=== PATIENT | female | born 1930 | race Caucasian/White ===

== ENCOUNTER 2020-04-30 19:28 | Observation (INO) | payer MEDICARE, BC ==
[2020-04-30 20:06] LABS: #Basophils 0.1 thou/uL (0.0-0.2); #Eosinphils 0.1 thou/uL (0.0-0.7); #Lymphocytes 1.5 thou/uL (1.20-3.40); #Monocytes 0.6 thou/uL (0.11-0.59); #Neutrophils 5.7 thou/uL (1.40-6.50); %Basophils 0.9 % (0.0-1.0); %Eosinophils 1.8 % (0.0-10.0); %Lymphocytes 19.4 % (21.0-51.0); %Monocytes 6.9 % (0.0-10.0); Hemoglobin 14.8 g/dL (12.0-16.0); Mean Corpuscular HGB CONC 33.4 g/dL (32.0-36.0); Mean Corpuscular Hemoglobin 31.6 pg (27.0-31.0); Mean Corpuscular Volume 94.6 fL (78.0-98.0); Platelet Count 195 thou/uL (130-400); RBC Distribution Width 11.7 % (11.5-14.5); Red Blood Cell (RBC) Count 4.69 mill/uL (4.20-5.40)
--- NOTE | 2020-04-30 20:06 | RAD ---
Chest AP view INDICATION: Chest wall and rib pain COMPARISON: None FINDINGS: Lungs: There is a diffuse interstitial opacities suspicious for underlying fibrosis. No confluent ai rspace opacity is evident. Cardiac silhouette: There is a atrial appendage closure device seen along the left heart border. The re are vascular calcification involving the thoracic aorta. Heart size is normal. Pulmonary vasculature: Normal Pleural spaces: No pleural effusion or pneumothorax is demonstrated. Upper abdomen: No abnormality seen. Osseous structures: There is a bone infarct versus low-grade chondroid lesion involving proximal rig ht humerus. There is diffuse osteopenia. No definite acute osseous abnormality is evident. Additional findings: None. IMPRESSION: Chronic lung changes. No definite acute cardiopulmonary abnormality.
[2020-04-30] MEDS ORDERED: HYDROcodone/Acetaminophen 5/325 mg Tablet ONE (20:20)
[2020-04-30] MEDS ORDERED: Nitroglycerin 0.4 MG TAB 1 EACH ONE (20:20)
[2020-04-30] MEDS ORDERED: Aspirin 325 MG TAB ONE (20:20)
[2020-04-30 20:28] LABS: ALT (SGPT) 23 U/L (8-55); AST (SGOT) 23 U/L (5-34); Albumin 4.7 g/dL (3.4-4.8); Alkaline Phosphatase 61 U/L (40-110); Anion Gap 14 mmol/L (10-20); BUN (Urea Nitrogen) 18 mg/dL (9.8-20.1); Bilirubin, Total 1.1 mg/dL (0.2-1.2); CK (CPK) 66 U/L (29-168); Calc. Creatinine Clearance 0 mL/min (70-130); Calcium 9.3 mg/dL (7.8-10.44); Carbon Dioxide 22 mmol/L (23-31); Chloride 107 mmol/L (98-107); Estimated GFR-MDRD 64; Globulin 2.4 g/dL (2.4-3.5); Glucose 139 mg/dL (83-110); Potassium 4.1 mmol/L (3.5-5.1); Protein, Total 7.1 g/dL (6.0-8.3); Sodium 139 mmol/L (136-145)
[2020-04-30 23:25] LABS: Troponin I 0.015 ng/mL (< 0.028)
[2020-05-01 00:13] VITALS: BMI 23.7
[2020-05-01] MEDS ORDERED: Acetaminophen 650 MG Suppository PR PRN (00:43)
[2020-05-01] MEDS ORDERED: Acetaminophen 325 MG TAB PO PRN (00:43)
[2020-05-01] MEDS ORDERED: Nitroglycerin 0.4 MG TAB (25 Tab Bottle) SL PRN (00:46)
--- NOTE | 2020-05-01 01:01 | PDOC.HHP ---
Hospitalist HPI - History of Present Illness Chest pain History of Present Illness: Patient presents with complaints of chest pain that have been ongoing for the past 3 days. States its been intermittent and occurring on the right side of her lower chest and left side of her lower chest, beneath her breasts. The pain switches sides and she is unable to recall how long it lasts. She is sedentary at baseline. Mobilises with her walker but spends most of her time sitting. Denies any association between pain and activity. Has not taken anything for pain. Unable to rate it in terms of severity. She was on her way to the ED today due to the pain when she suddenly had an increase in pain at approximately 6:30pm. Unable to recall how long it lasted. States it is an aching pain. Not stabbing in nature. Pain is not reproducible to touch and she denies any falls or injuries. No shortness of breath or cough. No hemoptysis. She became diaphoretic and was nauseated. No vomiting. Denies any recent fevers or chills. Reports having regular bowel movements. No urinary symptoms. All other review of systems are negative. Of note she is known to Dr. Deal who she hasn't seen for years. ED COURSE: 12 lead EKG shows, atrial fibrillation with controlled ventricular response, Rate (beats per minute): [address] changes or T wave abnormalities. Initial troponin negative. CXR done showed chronic lung changes. No acute findings. Given 325 mg of Aspirin, NItro SL 0.4 mg and hydrocodone 5/325 mg for pain. PAST MEDICAL HISTORY: 1. Parkinson's 2. Afib 3. Hypertension 4. Dementia SURGICAL HISTORY: 1. Watchman placement SOCIAL HISTORY: Patient sedentary at baseline but gets around with a walker. Denies any tobacco use, alcohol consumption or drug use. FAMILY HISTORY: Noncontributory. ALLERGIES: No known drug allergies. CURRENT MEDICATIONS: 1. Citalopram. 2. Xanax. 3. Donepezil. 4. Memantine. - Exam General Appearance: NAD, awake alert General - other findings: BP:171/92, MAP:118, HR:69, RR:18, Temp: 97.6 (Oral), Pain: 0, O2 sat 100%RA ENT: normocephalic atraumatic, no oropharyngeal lesions, moist mucosa Neck: supple, no lymphadenopathy Heart: RRR, normal peripheral pulses Heart - other findings: no reproducible pain on palpation of chest wall Respiratory: CTAB, no wheezes, no rales, no ronchi, normal chest expansion, no tachypnea Gastrointestinal: soft, non-tender, non-distended, normal bowel sounds, no guarding, no rigidity Extremities: no edema Extremities - other findings: mild RLE swelling compared to left, nontender calves Skin: no rashes Neurological: cranial nerve grossly intact, normal sensation to touch, no weakness Musculoskeletal: normal tone, normal strength, no muscle wasting Psychiatric: normal affect, normal behavior, oriented to person, oriented to place Hospitalist Results - Labs Result Diagrams: 04/30/20 19:54 04/30/20 19:54 Lab results: WBC 8.0 thou/uL (4.8-10.8) 04/30/20 19:54 Hgb 14.8 g/dL (12.0-16.0) 04/30/20 19:54 Hct 44.3 % (36.0-47.0) 04/30/20 19:54 MCV 94.6 fL (78.0-98.0) 04/30/20 19:54 Plt Count 195 thou/uL (130-400) 04/30/20 19:54 Neutrophils % 71.0 % (42.0-75.0) 04/30/20 19:54 Sodium 139 mmol/L (136-145) 04/30/20 19:54 Potassium 4.1 mmol/L (3.5-5.1) 04/30/20 19:54 Chloride 107 mmol/L (98-107) 04/30/20 19:54 Carbon Dioxide 22 mmol/L (23-31) L 04/30/20 19:54 BUN 18 mg/dL (9.8-20.1) 04/30/20 19:54 Creatinine 0.84 mg/dL (0.6-1.1) 04/30/20 19:54 Glucose 139 mg/dL (83-110) H 04/30/20 19:54 Calcium 9.3 mg/dL (7.8-10.44) 04/30/20 19:54 Total Bilirubin 1.1 mg/dL (0.2-1.2) 04/30/20 19:54 AST 23 U/L (5-34) 04/30/20 19:54 ALT 23 U/L (8-55) 04/30/20 19:54 Alkaline Phosphatase 61 U/L (40-110) 04/30/20 19:54 Creatine Kinase 66 U/L (29-168) 04/30/20 19:54 Troponin I 0.015 ng/mL (< 0.028) 04/30/20 22:54 Serum Total Protein 7.1 g/dL (6.0-8.3) 04/30/20 19:54 Albumin 4.7 g/dL (3.4-4.8) 04/30/20 19:54 - Radiology Interpretation Chest x-ray Status: report reviewed by me Hospitalist H&P A/P - Problem (1) Chest pain Code(s): R07.9 - CHEST PAIN, UNSPECIFIED Status: Acute Assessment and Plan: Continue cardiac monitoring Trend troponins Add-on Mg+, D-Dimer, lipase and TSH Lipid panel with AM labs Continue aspirin and statin NPO at midnight Stress test for AM (2) History of atrial fibrillation Code(s): Z86.79 - PERSONAL HISTORY OF OTHER DISEASES OF THE CIRCULATORY SYSTEM Status: Chronic Assessment and Plan: Cardiac monitoring (3) Presence of Watchman left atrial appendage closure device Code(s): Z95.818 - PRESENCE OF OTHER CARDIAC IMPLANTS AND GRAFTS Status: Chronic (4) Hypertension Code(s): I10 - ESSENTIAL (PRIMARY) HYPERTENSION Status: Chronic Assessment and Plan: Monitor BP Resume home meds once verified (5) Parkinsons disease Code(s): G20 - PARKINSON'S DISEASE Status: Chronic Assessment and Plan: Resume home meds once verified (6) Dementia Code(s): F03.90 - UNSPECIFIED DEMENTIA WITHOUT BEHAVIORAL DISTURBANCE Status: Chronic Assessment and Plan: Resume Memantine once dose is verified. - Plan Plan: Surrogate decision maker is her daughter Marianna Tovar. PCP: Dr. Ger Anglin
[2020-05-01 01:48] LABS: Magnesium 2.1 mg/dL (1.6-2.6)
[2020-05-01 02:08] LABS: Troponin I Less than 0.010 ng/mL (< 0.028)
[2020-05-01 04:19] LABS: #Basophils 0.1 thou/uL (0.0-0.2); #Eosinphils 0.2 thou/uL (0.0-0.7); #Lymphocytes 1.2 thou/uL (1.20-3.40); #Monocytes 0.6 thou/uL (0.11-0.59); #Neutrophils 5.3 thou/uL (1.40-6.50); %Eosinophils 2.2 % (0.0-10.0); %Lymphocytes 15.9 % (21.0-51.0); %Monocytes 8.3 % (0.0-10.0); %Neutrophils 72.5 % (42.0-75.0); Hemoglobin 13.9 g/dL (12.0-16.0); Mean Corpuscular HGB CONC 34.8 g/dL (32.0-36.0); Mean Corpuscular Hemoglobin 33.2 pg (27.0-31.0); Mean Corpuscular Volume 95.3 fL (78.0-98.0); Mean Platelet Volume 7.1 fL (7.4-10.4); Platelet Count 168 thou/uL (130-400); RBC Distribution Width 11.7 % (11.5-14.5); Red Blood Cell (RBC) Count 4.18 mill/uL (4.20-5.40); White Blood Cell (WBC) Count 7.3 thou/uL (4.8-10.8)
[2020-05-01 04:35] LABS: Anion Gap 12 mmol/L (10-20); BUN (Urea Nitrogen) 21 mg/dL (9.8-20.1); Calc. Creatinine Clearance 55 mL/min (70-130); Calcium 8.8 mg/dL (7.8-10.44); Carbon Dioxide 24 mmol/L (23-31); Cardiac Risk 2.3 (Less than 4.5); Chloride 107 mmol/L (98-107); Cholesterol 140 mg/dl (< 200 Desired); Estimated GFR-MDRD 75; Glucose 96 mg/dL (83-110); HDL Cholesterol 62 mg/dL (>60 Neg Risk); LDL Cholesterol, Calculated 69 mg/dL; Sodium 139 mmol/L (136-145); Triglycerides 45 mg/dL (Less than 150)
[2020-05-01] MEDS ORDERED: Levothyroxine Sodium 25 MCG TAB PO SCH (07:45)
[2020-05-01] MEDS ORDERED: Aspirin 81 mg Enteric Coated Tablet PO SCH (09:00)
[2020-05-01] MEDS ORDERED: Dronedarone HCl 400 MG TAB PO SCH ×2 (09:00)
[2020-05-01] MEDS ORDERED: Citalopram 20 MG TAB PO SCH (09:00)
[2020-05-01] MEDS ORDERED: Rosuvastatin 5 MG TAB PO SCH (09:00)
--- NOTE | 2020-05-01 12:09 | NM ---
Radionucleotide stress and rest myocardial perfusion scan with CT attenuation correction and SPECT im aging Left ventricular wall motion evaluation and ejection fraction HISTORY: Chest pain. FINDINGS: Adenosine protocol. There is heterogeneous uptake of radiotracer throughout the left ventri cular myocardium. Some attenuation due to patient's arms on the stress images. No focal perfusion defect or reversibility. QGS analysis of gated SPECT images shows no focal wall motion abnormalities. Ejection fraction calcul ated at 76%. IMPRESSION : No evidence of ischemia. Normal LVEF.
[2020-05-01] MEDS ORDERED: ADENOSINE 60 MG/20 ML VIAL ONE (14:46)
[2020-05-01] MEDS ORDERED: Iopamidol-370 76% 500 ML 1 ML ONE (15:07)
[2020-05-01 15:29] VITALS: BP 134/60; TEMP 98.2
--- NOTE | 2020-05-01 16:05 | CT ---
CT arteriogram chest with IV contrast and 3-D imaging HISTORY: Chest pain. Elevated d-dimer. COMPARISON: 12/20/2019. FINDINGS: There is good contrast opacification of the pulmonary arteries. Contrast has not reached th e aortic arch at the time of imaging. There is calcification within the arterial structures. Watchman device occludes the left atrial appendage. No pleural fluid, consolidation, or pneumothorax. No mediastinal adenopathy is apparent. Chronic compression of a midthoracic vertebral body is unchanged in appearance from the prior study. A 4.9 cm lobular cyst is noted within the medial segment left liver lobe. There is a 4.5 cm partially exophytic cyst at the superior pole of the left kidney. A 0.2 cm calculus is present within a nondilated calyx at the posterior aspect of the left kidney. IMPRESSION : No evidence of pulmonary embolus. Prominent atherosclerosis. Tiny nonobstructing left renal calculus. Hepatic and left renal cysts.
--- NOTE | 2020-05-02 01:11 | DIS ---
DATE OF ADMISSION: 04/30/2020 DATE OF DISCHARGE: 05/01/2020 DISCHARGE DIAGNOSES: 1. Chest pain, atypical. 2. Hypertension. 3. Hyperlipidemia. 4. Hypothyroidism. HOSPITAL COURSE: The patient is a very pleasant 89-year-old female who initially presented to the hospital on 04/30 with complaint of chest pain. Please refer to the H and P for further details. Patient at this time had troponins x3, which were negative. She underwent a stress test, which was negative. At this time, due to her mildly elevated D-dimer she underwent a CTA, which did not indicate any acute pulmonary embolism. Patient's CTA did indicate that she did have a 4.9 cm lobular cyst in the medial segment of the left liver lobe and 4.5 cm partially exophytic cyst in the superior pole of the left kidney, and 0.2 calculus present within the nondilated calyx of the left posterior kidney. This was communicated with the patient. She will follow up as an outpatient with her primary care doctor. She also will follow up with Cardiology as outpatient. Her home medications have been resumed. PHYSICAL EXAMINATION: VITAL SIGNS: On discharge are as of the following; temperature of 98.2, 66, 70, 93% on room air, 134/60. GENERAL: She is awake, alert, and oriented x3. Does not appear in distress. CV: S1, S2 present. No murmurs, rubs, gallops. Again, she will be discharged home. She will follow up with her primary and cardiology services. Job ID: [id number]
[2020-05-03] MEDS ORDERED: Levothyroxine Sodium 25 MCG TAB PO SCH (06:00)
== END 2020-05-01 16:30 | disposition home or self-care (01) ==
LOC: ERS 19:28 → 2NO 22:37
PROVIDERS: ADMIT Internal Medicine; ATTEND Internal Medicine
DX: R07.89 Other chest pain (principal); I10 Essential (primary) hypertension; E78.5 Hyperlipidemia, unspecified; E03.9 Hypothyroidism, unspecified; G20 Parkinson's disease; F02.80 Dementia in other diseases classified elsewhere, unspecified severity, without behavioral disturbance, psychotic disturbance, mood disturbance, and anxiety; I48.20 Chronic atrial fibrillation, unspecified; I70.90 Unspecified atherosclerosis; N20.0 Calculus of kidney; K76.89 Other specified diseases of liver; N28.1 Cyst of kidney, acquired; Z79.899 Other long term (current) drug therapy; Z95.818 Presence of other cardiac implants and grafts; Z23 Encounter for immunization
CPT/HCPCS: 71045; 71275; 78452; 80048; 80053; 80061; 82550; 83690; 83735; 84443; 84484 ×3; 85025 ×2; 85379; 90732; 93005; 93017; 94760; 97139 ×4; 97535; 99285; A9500; G0009; G0378 ×2; 36415; 90471; J0153; Q9967